=== PATIENT | male | born 2000 | race African-American/Black ===

== ENCOUNTER 2020-04-24 10:26 | Emergency (ER) | payer SELFPAY ==
[2020-04-24] MEDS ORDERED: Sodium Chloride 0.9% 10 ML Syringe FLUSH PRN ×2 (10:36→11:44)
[2020-04-24] MEDS ORDERED: Sodium Chloride 0.9% 1,000 ML IV SCH (10:45)
[2020-04-24] MEDS ORDERED: FLU VACC QS2020-21(6MOS UP)/PF 60 MCG/0.5 ML SYRINGE IM ONE (11:00)
--- NOTE | 2020-04-24 11:28 | EDM.PDOC ---
ED HPI GENERAL MEDICAL PROBLEM - General Chief Complaint: General Stated Complaint: [facility] Time Seen by Provider: 04/24/20 10:32 Source of Information: Reports: Patient, EMS History Limitations: Reports: No Limitations - History of Present Illness INITIAL COMMENTS - FREE TEXT/NARRATIVE: The patient presents by [facility] for abdominal pain and near syncope. The patient is just getting off of a 14 day quarantine for close contact COVID 19 exposure. He got up feeling fine today. He went to the bathroom and had a bowel movement that was diarrhea. He did not feel good after that. He had abdominal pain and felt like he was going to pass out. His vision was going dark at one time. His BP was under a 100 systolic on the ride here. He did get a lite of NS. He is feeling better not but he has some left sided abdominal pain. He has no health problems. He has no fever, chills, cough, congestion, runny nose, chest pain or shortness of breath. He did feel nauseated when this happened but he got zofran and he feels better. Onset: Sudden Duration: Minutes: Location: Reports: Abdomen Quality: Reports: Sharp Severity: Moderate Improves with: Reports: None Worsens with: Reports: None Associated Symptoms: Reports: Nausea/Vomiting. Denies: Chest Pain, Cough, Fever/Chills, Headaches, Shortness of Breath - Related Data Allergies Allergy/AdvReac Type Severity Reaction Status Date / Time No Known Allergies Allergy Verified 04/24/20 10:37 Home Meds: Home Meds . [No Known Home Meds] 04/24/20 [History] Past Medical History - Past Health History Medical/Surgical History: Denies Medical/Surgical History Social & Family History - Tobacco Use Smoking Status *Q: Never Smoker - Caffeine Use Caffeine Use: Reports: Soda - Recreational Drug Use Recreational Drug Use: No ED ROS GENERAL - Review of Systems Review Of Systems: See Below Constitutional: Reports: No Symptoms HEENT: Reports: No Symptoms Respiratory: Reports: No Symptoms Cardiovascular: Reports: Lightheadedness. Denies: Chest Pain Endocrine: Reports: No Symptoms GI/Abdominal: Reports: Abdominal Pain, Nausea. Denies: Vomiting : Reports: No Symptoms Musculoskeletal: Reports: No Symptoms ED EXAM, GENERAL - Physical Exam Exam: See Below Exam Limited By: No Limitations General Appearance: Alert, No Apparent Distress Ears: Normal External Exam Nose: Normal Inspection Head: Atraumatic, Normocephalic Neck: Normal Inspection Respiratory/Chest: No Respiratory Distress, Lungs Clear, Normal Breath Sounds Cardiovascular: Regular Rate, Rhythm, No Edema, No Murmur GI/Abdominal: Soft, No Organomegaly, No Mass, Tender (Mild to moderate pain to the left abdomen) Rectal (Males) Exam: Normal Exam Extremities: Normal Inspection Neurological: Alert, Oriented, No Motor/Sensory Deficits EKG INTERPRETATION EKG Date: 04/24/20 Time: 11:30 Rhythm: NSR Rate (Beats/Min): 62 [place]: Normal P-Wave: Present QRS: Normal ST-T: Normal QT: Normal Course - Vital Signs Last Recorded V/S: Last Vital Signs Temp 97.6 F 04/24/20 10:33 Pulse 67 04/24/20 10:33 Resp 16 04/24/20 10:33 BP 123/78 04/24/20 10:33 Pulse Ox 97 04/24/20 10:33 - Orders/Labs/Meds Orders: Active Orders 24 hr Category Date Time Status EKG Documentation Completion [RC] ASDIRECTED Care 04/24/20 10:37 Active Influenza Vaccine Charge [RC] .DISCHARGE Care 04/24/20 10:39 Active Peripheral IV Care [RC] . DIRECTED Care 04/24/20 10:36 Active Abdomen Pelvis w Cont [CT] Stat Exams 04/24/20 10:36 Taken UA W/MICROSCOPIC [URIN] Stat Lab 04/24/20 10:36 Stop Req Sodium Chloride 0.9% [Normal Saline] 1,000 ml Med 04/24/20 10:45 Active IV ASDIRECTED Sodium Chloride 0.9% [Saline Flush] Med 04/24/20 10:36 Active 10 ml FLUSH ASDIRECTED PRN Sodium Chloride 0.9% [Saline Flush] Med 04/24/20 11:44 Active 10 ml FLUSH ONETIME PRN Peripheral IV Insertion Adult [OM.PC] Stat Oth 04/24/20 10:36 Ordered EKG 12 Lead [EK] Stat Ther 04/24/20 10:37 Ordered Medication Orders Sodium Chloride (Normal Saline) 1,000 mls @ 125 mls/hr IV ASDIRECTED CARMENCITA Last Admin: 04/24/20 10:53 Dose: 125 mls/hr Documented by: EBERELI Sodium Chloride (Saline Flush) 10 ml FLUSH ASDIRECTED PRN PRN Reason: Keep Vein Open Last Admin: 04/24/20 11:05 Dose: 10 ml Documented by: EBERELI Sodium Chloride (Saline Flush) 10 ml FLUSH ONETIME PRN PRN Reason: IV FLUSH Last Admin: 04/24/20 12:51 Dose: 10 ml Documented by: LISBETH Labs: Laboratory Tests 04/24/20 04/24/20 04/24/20 Range/Units 10:54 10:55 10:55 WBC 4.30 (4.23-9.07) K/mm3 RBC 4.96 (4.63-6.08) M/mm3 Hgb 14.7 (13.7-17.5) gm/dl Hct 45.6 (40.1-51.0) % MCV 91.9 (79.0-92.2) fl MCH 29.6 (25.7-32.2) pg MCHC 32.2 (32.2-35.5) g/dl RDW Std Deviation 38.9 (35.1-43.9) fL Plt Count 163 (163-337) K/mm3 MPV 11.5 (9.4-12.3) fl Neut % (Auto) 64.5 (34.0-67.9) % Lymph % (Auto) 25.8 (21.8-53.1) % [place] % (Auto) 8.6 (5.3-12.2) % Eos % (Auto) 0.9 (0.8-7.0) Baso % (Auto) 0.2 (0.1-1.2) % Neut # (Auto) 2.77 (1.78-5.38) K/mm3 Lymph # (Auto) 1.11 L (1.32-3.57) K/mm3 [place] # (Auto) 0.37 (0.30-0.82) K/mm3 Eos # (Auto) 0.04 (0.04-0.54) K/mm3 Baso # (Auto) 0.01 (0.01-0.08) K/mm3 Sodium 142 (136-145) mEq/L Potassium 4.3 (3.5-5.1) mEq/L Chloride 105 (98-107) mEq/L Carbon Dioxide 29 (21-32) mEq/L Anion Gap 12.3 (5-15) BUN 14 (7-18) mg/dL Creatinine 0.9 (0.7-1.3) mg/dL Est Cr Clr Drug Dosing 116.04 mL/min Estimated GFR (MDRD) > 60 (>60) mL/min BUN/Creatinine Ratio 15.6 (14-18) Glucose 103 (74-106) mg/dL Calcium 9.0 (8.5-10.1) mg/dL Total Bilirubin 1.6 H (0.2-1.0) mg/dL AST 21 (15-37) U/L ALT 28 (16-63) U/L Alkaline Phosphatase 85 (46-116) U/L Troponin I < 0.017 (0.00-0.056) ng/mL Total Protein 6.8 (6.4-8.2) g/dl Albumin 3.5 (3.4-5.0) g/dl Globulin 3.3 gm/dL Albumin/Globulin Ratio 1.1 (1-2) Lipase 86 (73-393) U/L SARS-CoV-2 RNA (GIGI) Negative (NEGATIVE) Meds: Medications Generic Name Dose Route Start Last Admin Trade Name Freq PRN Reason Stop Dose Admin Sodium Chloride 1,000 mls @ 125 mls/hr 04/24/20 10:45 04/24/20 10:53 Normal Saline IV 125 mls/hr ASDIRECTED CARMENCITA Administration Sodium Chloride 10 ml 04/24/20 10:36 04/24/20 11:05 Saline Flush FLUSH 10 ml ASDIRECTED PRN Administration Keep Vein Open Sodium Chloride 10 ml 04/24/20 11:44 04/24/20 12:51 Saline Flush FLUSH 10 ml ONETIME PRN Administration IV FLUSH Discontinued Medications Generic Name Dose Route Start Last Admin Trade Name Freq PRN Reason Stop Dose Admin Diatrizoate Meglum/Diatrizoate Sod 120 ml 04/24/20 11:44 04/24/20 12:51 Gastrografin 37% PO 04/24/20 11:45 90 ml ONETIME ONE Administration Influenza Virus Vaccine 60 mcg 04/24/20 11:00 04/24/20 10:53 Fluzone Quad Syringe IM 04/24/20 11:01 60 mcg .ONCE ONE Administration Iopamidol 100 ml 04/24/20 11:44 04/24/20 12:51 Isovue-300 (61%) IVPUSH 04/24/20 11:45 100 ml ONETIME ONE Administration - Re-Assessments/Exams Free Text/Narrative Re-Assessment/Exam: 04/24/20 11:36 I ordered an IV NS at 125mL/hr, EKG, labs, UA and a CT of his abdomen and pelvis. 04/24/20 12:15 His CBC and CMP are negative. His COVID 19 is negative. His troponin is negative. His EKG shows a NSR with no acute changes. 04/24/20 13:[address] shows nothing acute. He feels better. I feel he had a vasovagal response. Departure - Departure Time of Disposition: 13:20 Disposition: Home, Self-Care 01 Condition: Good Clinical Impression: Near syncope Abdominal pain Qualifiers: Abdominal location: left lower quadrant Qualified Code(s): R10.32 - Left lower quadrant pain - Discharge Information *PRESCRIPTION DRUG MONITORING PROGRAM REVIEWED*: Not Applicable *COPY OF PRESCRIPTION DRUG MONITORING REPORT IN PATIENT EDUARD: Not Applicable Referrals: PCP,None [Primary Care Provider] - Forms: ED Department Discharge Additional Instructions: Drink plenty of fluids. Please return if you are worse. Sepsis Event Note (ED) - Evaluation Sepsis Screening Result: No Definite Risk - Focused Exam Vital Signs: Vital Signs Temp Pulse Resp BP Pulse Ox 04/24/20 10:33 97.6 F 67 16 123/78 97 - My Orders Last 24 Hours: My Active Orders 04/24/20 10:36 Peripheral IV Care [RC] . DIRECTED Abdomen Pelvis w Cont [CT] Stat UA W/MICROSCOPIC [URIN] Stat Sodium Chloride 0.9% [Saline Flush] 10 ml FLUSH ASDIRECTED PRN Peripheral IV Insertion Adult [OM.PC] Stat 04/24/20 10:37 EKG Documentation Completion [RC] ASDIRECTED EKG 12 Lead [EK] Stat 04/24/20 10:39 Influenza Vaccine Charge [RC] .DISCHARGE 04/24/20 10:45 Sodium Chloride 0.9% [Normal Saline] 1,000 ml IV ASDIRECTED 04/24/20 11:44 Sodium Chloride 0.9% [Saline Flush] 10 ml FLUSH ONETIME PRN - Assessment/Plan Last 24 Hours: My Active Orders 04/24/20 10:36 Peripheral IV Care [RC] . DIRECTED Abdomen Pelvis w Cont [CT] Stat UA W/MICROSCOPIC [URIN] Stat Sodium Chloride 0.9% [Saline Flush] 10 ml FLUSH ASDIRECTED PRN Peripheral IV Insertion Adult [OM.PC] Stat 04/24/20 10:37 EKG Documentation Completion [RC] ASDIRECTED EKG 12 Lead [EK] Stat 04/24/20 10:39 Influenza Vaccine Charge [RC] .DISCHARGE 04/24/20 10:45 Sodium Chloride 0.9% [Normal Saline] 1,000 ml IV ASDIRECTED 04/24/20 11:44 Sodium Chloride 0.9% [Saline Flush] 10 ml FLUSH ONETIME PRN
[2020-04-24] MEDS ORDERED: Iopamidol 612 MG/ML 100 ML Bottle IVPUSH ONE (11:44)
[2020-04-24] MEDS ORDERED: Diatrizoate Meglumine/Diatrizoate Sodium 37% 120 ML Bottle PO ONE (11:44)
== END 2020-04-24 14:00 | disposition home or self-care (01) ==
LOC: JD.ED 10:26
DX: R10.32 Left lower quadrant pain (principal); R55 Syncope and collapse; Z20.828 Contact with and (suspected) exposure to other viral communicable diseases; Z23 Encounter for immunization
CPT/HCPCS: 36415; 74177; 80053; 83690; 84484; 85025; 87635; 90471; 90686; 93005; 99285; J7030; Q9963; Q9967; 93010; 99283; G0008; U0002